=== PATIENT | male | born 1975 | race African-American/Black ===

== ENCOUNTER 2024-05-27 03:23 | Emergency (ER) | payer SELFPAY ==
[2024-05-27 03:35] VITALS: TEMP 98.8; BMI 34.8
[2024-05-27 04:00] LABS: BASO % 0.5 % (0-2.0); EOS % 3.3 % (0-4.5); HEMATOCRIT 31.8 % (35.4-49); HEMOGLOBIN 10.7 GM/dL (11.7-16.9); LYMPH % 11.9 % (8-40); MCH 25.8 pg (25.7-33.7); MCHC 33.7 g/dl (32.0-35.9); MEAN CELL VOLUME 76.5 fl (80-96); MEAN PLT VOLUME 9.5 fl (7.5-11.1); MONO % 11.3 % (3.8-10.2); PLATELET COUNT 328 10^3/uL (134-434); RBC 4.16 M/mm3 (4.00-5.60); RDW 17.5 % (11.9-15.9); WHITE BLOOD COUNT 8.1 K/mm3 (4.0-10.0)
[2024-05-27 04:27] LABS: POTASSIUM 4.4 mmol/L (3.5-5.1)
[2024-05-27 04:29] LABS: ALBUMIN 3.6 g/dl (3.4-5.0); BLOOD UREA NITROGEN 15.2 mg/dL (7-18); CALCIUM 8.9 mg/dL (8.5-10.1)
[2024-05-27 04:33] LABS: CREATININE 1.2 mg/dL (0.55-1.3)
[2024-05-27 04:34] LABS: BILIRUBIN,TOTAL 0.7 mg/dL (0.2-1); TOT PROT 7.1 g/dl (6.4-8.2)
[2024-05-27 08:18] VITALS: BP 152/77; PULSE 62; RESP 22
== END 2024-05-27 09:29 | disposition home or self-care (01) ==
LOC: JER 03:23
DX: F11.120 Opioid abuse with intoxication, uncomplicated (principal)
CPT/HCPCS: 36415; 80053; 85025; 93005; 93010; 99283-25